=== PATIENT | male | born 1995 | race Two or more races ===

== ENCOUNTER → 2016-09-09 | Outpatient (CLI) | payer OTHER ==
--- NOTE | 2016-09-10 12:11 | REP ---
RIGHT FOOT COMPLETE: 09/09/2016. Clinical history: Right foot pain. Comparison: Right ankle series today. Findings. Subtalar joints are intact. No heel spurs. Tarsal articulations with each other and the hind foot were unremarkable. TMP joints, metatarsals, phalanges and their associated joints were all unremarkable. No visible or displaced fracture, avulsion, foreign body or other acute finding. Impression: 1. Negative right foot series for fracture, avulsion, subluxation or other acute finding. Signed by Darryl Villalobos MD 09/10/2016 09:32 A
--- NOTE | 2016-09-10 12:11 | REP ---
RIGHT ANKLE SERIES: 09/09/2016. Clinical history: Acute right ankle pain. Comparison: Right foot today. Findings: Four view show the ankle mortise joint generally symmetric and preserved. There is no visible or displaced fracture nor avulsion of the distal tibia or fibula. No talar dome osteochondral defect. Subtalar joints intact. No heel spurs. Talus, calcaneus and tarsal articulations visible were unremarkable. Impression: 1. There is no visible or displaced fracture, avulsion, disruption of the mortise joint or talar dome osteochondral defect about the right ankle. Signed by Darryl Villalobos MD 09/10/2016 09:32 A
== END ==
LOC: M LRY 16:02
PROVIDERS: ATTEND Physician Assistant
DX: M25.571 Pain in right ankle and joints of right foot (principal); M79.671 Pain in right foot
CPT/HCPCS: 73610; 73630; G0463